=== PATIENT | female | born 1975 | race Caucasian/White ===

== ENCOUNTER 2018-07-04 17:20 | Emergency (ER) | payer OTHER ==
[~2018-07-04] VITALS: Ht 160 cm; Wt 90.0 kg
[2018-07-04 17:27] VITALS: BP 138/70; TEMP 97.4
[2018-07-04 19:25] VITALS: PULSE 85
== END 2018-07-04 19:25 | disposition home or self-care (01) ==
LOC: COL.ER 17:20
DX: R20.2 Paresthesia of skin (principal); J45.909 Unspecified asthma, uncomplicated; Z98.890 Other specified postprocedural states